=== PATIENT | female | born 1975 | race Caucasian/White ===

== ENCOUNTER 2023-10-31 20:56 | Emergency (ER) | payer OTHER, SELFPAY ==
[2023-10-31 20:57] VITALS: BMI 22.5
[2023-10-31 20:59] VITALS: BP 138/78
[2023-10-31 21:23] LABS: % Basophils 0.1 % (0-2); % Eosinophils 0.4 % (0-6); % Immature Granulocytes 0.3 % (0-0.5); % Lymphocytes 23.2 % (20.5-51.1); Absolute Lymphocytes 2.1 10^3/uL (1.2-3.4); Absolute Monocytes 0.4 10^3/uL (0.1-0.6); Absolute Neutrophils 6.6 10^3/uL (1.4-6.5); Hematocrit 42.5 % (37.0-47.0); Hemoglobin 14.6 g/dL (12.0-16.0); Mean Corp Hgb Conc. 34.4 g/dL (33.0-37.0); Mean Corpuscular Hgb 31.2 pg (27.0-31.0); Mean Corpuscular Volume 90.8 fL (81.0-99.0); Mean Platelet Volume 9.3 fL (7.4-10.4); Nucleated Red Blood Cells % 0 %; Platelet Count 228 10^3/uL (130-400); Red Blood Cell Count 4.68 10^6/uL (4.20-5.40); Red Cell Dist. Width 11.8 % (11.5-14.5); White Blood Cell Count 9.1 10^3/uL (4.8-10.8)
[2023-10-31 21:41] LABS: HCG, Serum Qualitative Screen Negative
[2023-10-31 21:42] LABS: ALT (SGPT) 13 U/L (0-35); AST (SGOT) 24 U/L (14-36); Alkaline Phosphatase 71 U/L (38-126); Blood Urea Nitrogen 12 mg/dl (7-17); Calcium 9.3 mg/dl (8.4-10.2); Carbon Dioxide 28 mmol/L (22-30); Chloride 103 mmol/L (98-107); Glucose 143 mg/dl (70-99); Potassium 4.1 mmol/L (3.5-5.1); Sodium 140 mmol/L (135-145); Total Bilirubin 0.7 mg/dl (0.2-1.3); Total Protein 6.5 g/dl (6.3-8.2); eGFR > 60.00
[2023-10-31 22:23] VITALS: BP 104/76
[2023-10-31 23:10] VITALS: BP 100/74
[2023-10-31 23:11] VITALS: BP 100/74
[2023-11-01 01:35] VITALS: BP 101/69
--- NOTE | 2023-11-01 01:42 | ED.GENMED ---
History of Present Illness
General
Chief Complaint: Skin Problem
Source: patient
Exam Limitations: none
Time Seen by Provider: 11/01/23 01:02
Nursing documentation reviewed up to this point in time: agreed with
History of Present Illness
History of Present Illness:
48-year-old female with no reported chronic medical issues presents to the emergency room for evaluation of rash. Patient reports that she started to notice small raised lesion on the right arm earlier today and since then it has progressed to a
large confluent lesion on the entire right upper arm she also has large raised areas on the right chest wall, left shoulder, left arm and left knee. She says that these areas are pruritic, not painful. She denies any oral ulcerations or lesions.
She denies any itching or pain in the eyes. She denies any chest pain or shortness of breath. Denies any nausea, vomiting, abdominal cramping. She says she has had similar episodes multiple times over the past few months, has tried topical
steroid cream and Benadryl with little relief. No clear trigger noted�no new exposures to skin care cleaning products, soaps. She denies any known bug bites. She has no known allergies.
Review of Systems
Review of Systems
All Other Systems: ROS reviewed and negative except as documented in HPI and ROS
Constitutional: Denies fever
EENT: Reports other (Denies mucous membrane lesions)
Respiratory: Denies cough or trouble breathing
Cardiac: Denies chest pain
ABD/GI: Denies abdominal pain, nausea or vomiting
Skin: Reports itching and rash
Neurological: Denies dizzy or headache
Phy Exam
Physical Exam
Physical Exam:
General: Awake, alert, oriented x3; no acute distress
Head: Normocephalic, atraumatic
Eyes: Conjunctiva normal, EOMI
Throat: Airway intact, handling secretions, no mucous membrane ulcerations or lesions
Neck: Trachea midline, supple without meningismus
Lungs: Clear to auscultation bilaterally, no wheezing, rales, rhonchi
Heart: Regular rate and rhythm, no murmurs, gallops, or rubs
Abd: Soft, non distended, nontender
Neuro: No gross deficits
Skin: Urticaria with large erythematous, raised, confluent lesions on the right medial upper arm, left forearm/antecubital area, left posterior shoulder, right chest wall, left knee to a small degree; no rash or lesions on the palms or soles
Extremities: No edema in extremities, equal pulses in all extremities
Scores
Heart Failure Risk
Heart Failure Risk Score: Not Applicable
Heart Score for Chest Pain Patients
STEMI patient?: Not applicable
Withdrawal Assessment of Alcohol
Withdrawal Assessment Completed?: Not applicable
Course
Orders/Labs/Results
Orders:
Orders
10/31/23 21:02
Test Result ONCE
10/31/23 21:07
Complete Blood Count/With Diff Urgent
Comprehensive Metabolic Panel Urgent
HCG, Serum Qualitative Screen Urgent
11/01/23 01:39
Diphenhydramine [Benadryl] 25 mg PO NOW STA
Famotidine [Pepcid] 20 mg PO NOW STA
Prednisone [Deltasone] 50 mg PO NOW STA
Abnormal Lab Results
10/31/23
21:07
MCH 31.2 H pg
(27.0-31.0)
Absolute Neuts (auto) 6.6 H 10^3/uL
(1.4-6.5)
Creatinine 0.5 L mg/dL
(0.6-1.0)
Glucose 143 H mg/dl
(70-99)
10/31/23 21:07
10/31/23 21:07
Vital Signs
Initial and Last Documented VS:
Initial Vital Signs
Temp Pulse Resp BP Pulse Ox
36.7 C 88 18 138/78 99
10/31/23 20:59 10/31/23 20:59 10/31/23 20:59 10/31/23 20:59 10/31/23 20:59
Last Documented Vital Signs
Temp Pulse Resp BP Pulse Ox
36.7 C 86 16 101/69 99
10/31/23 20:59 11/01/23 01:35 10/31/23 22:26 11/01/23 01:35 11/01/23 01:35
MDM/Problems Addressed
Differential Diagnosis Includes:
Urticaria�could be viral versus allergic versus autoimmune
MDM/Problems Addressed:
48-year-old female presents with urticaria started this morning and has progressed throughout the day. Has had multiple episodes of similar over the past few months, has never seen a doctor. No signs of anaphylaxis, no mucous membrane or oral
involvement. Conjunctiva are normal. No fever. Nontoxic-appearing. Physical exam as above. Had screening lab work sent in triage which was unremarkable. Will plan to treat with steroid, Benadryl, Pepcid. Refer to dermatology for outpatient
follow-up. She should also follow-up with her primary care physician. She feels comfortable to this plan. We spoke about return precautions and all questions answered.
*Pulse Oximetry
Patient hypoxic: no
*Critical Care Note
Total Time (30-74mins, 75-104mins- exclusive of procedures): Not Applicable
Data Reviewed
Source: patient and family
ED Attending Note
-
Portions of this chart may have been created with voice recognition software.� Occasional wrong word or��sound alike� substitutions may have occurred due to the inherent limitations of voice recognition software.
Discharge Plan
Departure
Patient Disposition: Home (Routine Discharge)
Date of Disposition: 11/01/23
Time of Disposition: 01:41
Patient with high blood pressure during this ER visit?: No
Discharge Problem:
Urticaria
Instructions: Hives
Prescriptions:
New
prednisone 10 mg Tablet
See Rx Instructions .ROUTE .COMPLEX Qty: 30 0RF
Rx Instructions:
Take By Mouth:
40 mg daily x3 days, 30 mg daily x3 days,
20 mg daily x3 days, 10 mg daily x3 days.
No Action
diphenhydramine HCl [Banophen] 50 mg Capsule
50 mg PO HS
betamethasone dipropionate 0.05 % Cream
1 applic TOPICAL DAILY PRN (Reason: rash)
hydroxyzine HCl 25 mg Tablet
25 mg PO BID
Referrals:
David Domingo DO [Family Provider] - Follow up in 2-3 days
Sylvia Varner MD [Consulting Staff] - Call in 1-3 days for appt (Dermatology)
Activity Restrictions/Additional Instructions:
Thank you for visiting the Emergency Department at [facility].
1. Please schedule a follow up appointment as directed. Call first thing tomorrow morning to make an appointment.
2. If indicated, please take your medications as instructed and indicated on discharge paperwork.
3. If any of your symptoms do not improve, or persist, or become more severe within 6-12 hours, please return to the emergency department for further care.
4. Please return to the emergency department if you develop a headache, neck pain/stiffness, fever greater than 100.4F, chest pain, shortness of breath, persistent nausea, vomiting, slurred speech, difficulty walking, numbness/tingling, weakness,
signs of infection or any other symptoms that are worrisome to you.
Please call [phone] if you have any questions.
Interventions
Interventions:
*Risk Screen - Suicide Last Done: 10/31/23 20:59
*General Assessment Last Done: 10/31/23 20:59
*Neglect/Abuse Screening Last Done: 10/31/23 20:59
ED- Fall Risk Assessment Last Done: 10/31/23 22:18
ED-Skin Assessment Last Done: 10/31/23 23:18
Discharge Date and Time
Print Language: SLOVENIAN
[2023-11-01] MEDS: PEPCID 20 MG PO (01:51)
[2023-11-01] MEDS: DELTASONE 50 MG PO (01:52)
== END 2023-11-01 02:10 | disposition home or self-care (01) ==
LOC: EMR 20:56
PROVIDERS: EMERGENCY PHYSICIAN Emergency Medicine; FAMILY PHYSICIAN Family Medicine
DX: L50.9 Urticaria, unspecified (principal); L29.9 Pruritus, unspecified
CPT/HCPCS: 99283; 80053; 84703; 85025